=== PATIENT | female | born 1985 | race Caucasian/White ===

== ENCOUNTER 2017-03-15 20:37 | Emergency (ER) | payer BC ==
[2017-03-15] MEDS ORDERED: KETOROLAC TROMETHAMINE 60 MG/2 ML VIAL IM ONE ×2 (21:18→21:47)
[2017-03-15] MEDS ORDERED: ORPHENADRINE CITRATE 30 MG/ML VIAL IM ONE (21:18)
--- NOTE | 2017-03-15 21:24 | ERNOTE ---
<Ilsa Gneao - Last Filed: 03/15/17 22:03> Back Pain ER HPI Date of Service: 03/15/17 Presenting Symptoms: hx chronic back pain Time Seen by Provider: 03/15/17 21:12 Source: patient Exam Limitations: no limitations Immunizations: IMMUNIZATION HX Immunizations Up to Date No History of Influenza Vaccine Yes Hx Pneumococcal Vaccination No Allergies/Adverse Reactions: Allergies Sulfa (Sulfonamide Antibiotics) [Sulfa(Sulfonamide Antibiotics)] Adverse Reaction (Mild, Verified 05/23/15 14:23) RASH Home Medications: HOME MEDICATIONS metFORMIN HCL [Metformin HCl ER] 1,000 mg PO BID 02/11/13 [Last Taken 09/17/14] Ondansetron [Zofran Odt] 4 mg PO Q6H PRN #20 tab 05/23/15 [Last Taken Unknown] Insulin Glargine,Hum.rec.anlog [Lantus Solostar] 30 unit SQ DAILY 08/12/15 [ Last Taken Unknown] oxyCODONE HCL/ACETAMINOPHEN [Percocet 5-325 mg Tablet] 1 each PO Q4H PRN #30 tablet 08/12/15 [Last Taken Unknown] Cyclobenzaprine HCl [Flexeril] 10 mg PO TID PRN #30 tab 03/15/17 [Last Taken Unknown] Nabumetone 750 mg PO BID #20 tablet 03/15/17 [Last Taken Unknown] Narrative: Pt. comes in with c/o L lateral back pain that radiates down her L leg for three days. Pt. denies any numbness, tingling, incontinence, recent illness, recent injury, fever, weakness, or alleviating factors despite taking [place] for pain. Pt. has a hx of chronic back pain an previous fixator surgery but states that this is different. Pt. also states that this is different than when she has had renal stones in the past. Date (Duration): 03/13/17 Timing: Reports: getting worse Quality/Severity: Reports: severe, sharpness Location of pain: Reports: lower back, radiating to lf thigh/leg Activities at Onset: Reports: none Recent Injury?: Reports: no Possible Precipitating Factor: Reports: none Modifying Factors - (Improves): Reports: nothing Modifying Factors - (Worsens): Reports: movement to right, movement to left, movement flexion Associated Symptoms: Reports: none. Denies: fever/chills, sweating, constipation/incontinence, nausea/vomiting, problems urinating, difficulty walking, lightheadedness, numbess/weakness in legs Prior Treament: Reports: treated by physician. Denies: similar symptoms before Review of Systems - Review of Systems Constitutional: Present: no symptoms reported. Absent: fever, chills, weakness , fatigue, malaise EYE: Present: no symptoms reported ENT: Present: no symptoms reported Respiratory: Present: no symptoms reported. Absent: shortness of breath, cough , wheezing Cardiology: Present: no symptoms reported. Absent: chest pain, palpitations, edema Gastrointestinal/Abdominal: Present: no symptoms reported. Absent: nausea, vomiting, diarrhea Genitourinary: Present: no symptoms reported. Absent: frequency, decreased urinary output Musculoskeletal: Present: back pain. Absent: neck pain, joint pain Skin: Present: no symptoms reported. Absent: rash, change in hair/nails Neurological: Present: no symptoms reported. Absent: headache, dizziness/light- headedness, numbness, tingling All Other Systems: All systems neg except as marked - Patient's Past Medical History Patient History - Medical: Chronic Pain, Diabetes Type 2 Insulin Dependent, Kidney stone Patient History - Cardiac/Respiratory: Hyperlipidemia Patient History - Cancer: No Hx of Cancer Patient History - Surgical Procedures: Back Surgery Patient History - Other: None - Social History Living Situations: home Abuse History: No History of abuse Psych History: No pertinent hx Smoking Status: Former smoker Have you smoked in the past 12 months: No Do you dip or chew tobacco: No Alcohol Use: rarely Drug Use: none - Immunizations Immunizations Up to Date: No Hx Pneumococcal Vaccination: No History of Influenza Vaccine: Yes Physical Exam - Physical Exam General Appearance: Present: wd/wn, alert, no apparent distress Head Exam: Present: normal inspection, no evidence of injury Eye Exam: Normal inspection: bilateral Ears, Nose, Throat: Present: normal ENT inspection, normal pharynx Neck: Present: normal inspection, nontender, supple, full range of motion. Absent: lymphadenopathy (R), lymphadenopathy (L) Respiratory: Present: no respiratory distress, normal breath sounds, no accessory muscle use, chest nontender, lungs clear Cardiovascular/Chest: Present: regular rate, rhythm, no murmur, normal peripheral pulses Gastrointestinal/Abdominal: Present: normal bowel sounds, nontender, nondistended, soft, no organomegaly Back Exam: Present: normal range of motion, CVA tenderness (L), vertebral tenderness - L1-S1, muscle spasm - L paraspinous. Absent: decreased range of motion Extremity Exam: Present: normal inspection, non-tender, normal range of motion, no edema Neurological Exam: Present: alert, oriented, normal mood/affect, no motor/ sensory deficits ED Progress - Vital Signs Patient's Vital Signs:: I have reviewed the patient's vital signs. Vital Signs: Vital Signs 03/15/17 21:02 Temperature 35.8 C L Pulse Rate 86 Respiratory 17 Rate Blood Pressure 137/96 O2 Sat by Pulse 100 Oximetry - Progress/Reassessment Chief Complaint: Back Pain Progress:: Unchanged - Transfer of Care Physician Sign Out: Ilsa Genao Receiving Physician: Blayne Lugo Pending Results: Labs, X-ray results Departure Clinical Impression: Muscle spasm Back pain Qualifiers: Back pain location: low back pain Chronicity: acute Back pain laterality: bilateral Sciatica presence: with sciatica Sciatica laterality: sciatica of left side Qualified Code(s): M54.42 - Lumbago with sciatica, left side Sacroiliac (ligament) sprain Qualifiers: Encounter type: initial encounter Qualified Code(s): S33.6XXA - Sprain of sacroiliac joint, initial encounter - Departure Disposition: Home self-care Condition: Good Instructions: Cryotherapy, [id number], Heat Therapy Additional Instructions: take prescriptions as directed. See your primary care physician if not improving in 3-5 days. Referrals: Rosa Isela Aguirre, [employer] [employer] [Primary Care Provider] - Prescriptions: Cyclobenzaprine HCl [Flexeril] 10 mg PO TID PRN #30 tab PRN Reason: MUSCLE SPASMS Nabumetone 750 mg PO BID #20 tablet <Blayne Lugo - Last Filed: 03/16/17 02:52> Back Pain ER HPI Immunizations: IMMUNIZATION HX Immunizations Up to Date No History of Influenza Vaccine Yes Hx Pneumococcal Vaccination No Physical Exam - Physical Exam Back Exam: Present: other - sacroiliac tenderness and illiolumbar lig tenderness bilateral ED Progress - Results and Orders Patient's Lab Results:: I have reviewed the patient's lab results. Results and Orders: Laboratory Tests 03/15/17 03/15/17 22:08 22:08 Urine Color Yellow Urine Appearance Clear Urine pH 5.5 Ur Specific [place] 1.020 Urine Protein Negative Urine Glucose (UA) >=1000 H Urine Ketones 15 Urine Blood Negative Urine Nitrate Negative Urine Bilirubin Negative Urine Urobilinogen Normal Ur Leukocyte Esterase Negative Urine RBC 0-5 Urine WBC 0-5 Ur Epithelial Cells Trace Urine Bacteria 1+ H Urine Culture Comments No culture indicated Urine HCG, Qual Negative - Vital Signs Vital Signs: Vital Signs 03/15/17 21:02 Temperature 35.8 C L Pulse Rate 86 Respiratory 17 Rate Blood Pressure 137/96 O2 Sat by Pulse 100 Oximetry - X-Ray X-Ray #1 X-Ray: lumbosacral Interpretation: Interp. by pa X-ray Comments: thoracolumbar spinal rods from the thoracic spine outside of the view of this film down to L3. Hardware in good condition. No acute changes. Mod stool visible in the abdomen
[2017-03-15] MEDS ORDERED: ORPHENADRINE CITRATE 30 MG/ML VIAL ONE (21:47)
[2017-03-15 22:27] LABS: Urine Bilirubin Negative (NEGATIVE); Urine Blood Negative /ul (NEGATIVE); Urine Ketone 15 mg/dL (NEGATIVE); Urine Nitrite Negative (NEGATIVE); Urine Protein Negative (NEGATIVE); Urine Urobilinogen Normal (NORMAL); Urine pH 5.5 pH (5.0-7.0)
[2017-03-15 22:34] LABS: Urine Appearance Clear; Urine Color Yellow
[2017-03-15 22:35] LABS: Urine Bacteria 1+; Urine RBC 0-5 /hpf (0-5); Urine WBC 0-5 /hpf (0-5)
[2017-03-16 03:22] VITALS: BP 138/72
== END 2017-03-15 23:57 | disposition home or self-care (01) ==
LOC: ER 20:37
DX: M62.830 Muscle spasm of back (principal); M54.42 Lumbago with sciatica, left side; S33.6XXA Sprain of sacroiliac joint, initial encounter; Z87.891 Personal history of nicotine dependence